=== PATIENT | female | born 1960 | race Caucasian/White ===

== ENCOUNTER 2017-11-23 05:51 | Observation (INO) | payer OTHER ==
[2017-11-23] MEDS ORDERED: POLYMYXIN/BACITRACIN 1L IRRIG ×3 (06:45→07:16)
[2017-11-23] MEDS ORDERED: ROPIVACAINE 0.5 % 30 ML VIAL (07:16)
[2017-11-23] MEDS ORDERED: ROPIVACAINE 0.2% 20 ML VIAL (07:28)
[2017-11-23] MEDS ORDERED: FENTAnyl 50 MCG/ML VIAL (07:28)
[2017-11-23] MEDS ORDERED: MIDAZOLAM 1 MG/ML 2 ML INJ (07:28)
[2017-11-23] MEDS ORDERED: METOCLOPRAMIDE 10 MG INJ (07:53)
[2017-11-23] MEDS ORDERED: ROCURONIUM 50 MG INJ (08:28)
[2017-11-23] MEDS ORDERED: ACETAMINOPHEN 1000MG/100ML IV 100 ML (08:28)
[2017-11-23] MEDS ORDERED: PROPOFOL 20 ML (08:28)
[2017-11-23] MEDS ORDERED: ONDANSETRON 4 MG INJ (08:28)
[2017-11-23] MEDS: NEOMYC/POLYMYX/BACIT 30 GM OINT ×2 (09:18)
[2017-11-23] MEDS: POLYMYXIN/BACITRACIN 1L IRRIG (09:18)
[2017-11-23] MEDS ORDERED: KETOROLAC 30 MG INJ (10:25)
[2017-11-23] MEDS ORDERED: PROPOFOL 100 ML (10:26)
[2017-11-23] MEDS: CA CHLORIDE 10% 10 ML SYRINGE (10:41)
[2017-11-23] MEDS: THROMBIN 5000 UNIT VIAL (10:42)
[2017-11-23] MEDS: THROMBIN(HUM PLAS)/FIBRINOG/CA 5 ML VIAL TOP (10:42)
[2017-11-23] MEDS ORDERED: HYDROmorphONE (0.2 MG/ML) 10ML SYG IV (12:00)
[2017-11-23] MEDS ORDERED: ONDANSETRON 4 MG INJ IV ×2 (12:00→12:30)
[2017-11-23] MEDS ORDERED: CEFAZOLIN 1 GM INJ IV (12:30)
[2017-11-23] MEDS ORDERED: DIPHENHYDRAMINE 25 MG CAP PO (12:30)
[2017-11-23] MEDS ORDERED: morphine 10 MG INJ IV (12:30)
[2017-11-23] MEDS ORDERED: HYDROmorphONE 2 MG/ML SYG IV (13:00)
[2017-11-23] MEDS: CEFAZOLIN 1 GM/50 ML (PMX) 50 ML IVPB ×2 (17:49→21:57)
[2017-11-23] MEDS: OXYCODONE/ACETAMINOPHEN (5/325) TAB PO (17:49)
[2017-11-24] MEDS: OXYCODONE/ACETAMINOPHEN (5/325) TAB PO ×3 (03:26→19:29)
[2017-11-24 05:14] LABS: ADD MAN DIFF? NO
[2017-11-24 05:21] LABS: BASOPHILS % 0.2 % (0.0-2.0); EOSINOPHILS # 0.1 10^3/ul (0.0-0.5); EOSINOPHILS % 2.3 % (0.0-7.0); HEMATOCRIT 31.8 % (37.0-47.0); HEMOGLOBIN 10.6 g/dl (12.0-16.0); LYMPHOCYTES # 1.7 10^3/ul (0.8-2.9); LYMPHOCYTES % 37.1 % (15.0-51.0); MEAN CORPUSCULAR HEMOGLOBIN 30.1 pg (29.0-33.0); MEAN CORPUSCULAR HGB CONC 33.3 g/dl (32.0-37.0); MEAN CORPUSCULAR VOLUME 90.3 fl (82.0-101.0); MEAN PLATELET VOLUME 11.5 fl (7.4-10.4); MONOCYTE # 0.5 10^3/ul (0.3-0.9); MONOCYTES % 10.9 % (0.0-11.0); NEUTROPHIL # 2.3 10^3/ul (1.6-7.5); NEUTROPHILS % 49.3 % (39.0-77.0); PLATELET COUNT 142 10^3/UL (140-415); RED BLOOD COUNT 3.52 10^6/ul (4.20-5.40); RED CELL DISTRIBUTION WIDTH 12.8 % (11.5-14.5)
[2017-11-24 05:21] LABS: WHITE BLOOD COUNT 4.7 10^3/ul (4.8-10.8)
[2017-11-24] MEDS: CEFAZOLIN 1 GM/50 ML (PMX) 50 ML IVPB ×3 (05:36→22:05)
[2017-11-24 05:43] LABS: POTASSIUM 4.5 mmol/L (3.5-5.1); SODIUM 144 mmol/L (135-144)
[2017-11-24 05:44] LABS: ALANINE AMINOTRANSFERASE 68 IU/L (13-69); ALBUMIN 3.6 g/dl (3.3-4.9); ALBUMIN/GLOBULIN RATIO 1.05; ALKALINE PHOSPHATASE 70 IU/L (42-121); ANION GAP 12 (8-16); ASPARTATE AMINO TRANSFERASE 56 IU/L (15-46); BILIRUBIN,INDIRECT 0.6 mg/dl (0-1.1); BILIRUBIN,TOTAL 0.6 mg/dl (0.2-1.3); BLOOD UREA NITROGEN 9 mg/dl (7-20); CALCIUM 9.1 mg/dl (8.4-10.2); CARBON DIOXIDE 32 mmol/L (21-31); CHLORIDE 105 mmol/L (97-110); CHOL/HDL RATIO 2.1 RATIO; CHOLESTEROL 107 mg/dl (100-200); CREATININE 0.56 mg/dl (0.44-1.00); GLUCOSE 123 mg/dl (70-220); HDL CHOLESTEROL 50 mg/dl (35-98); LDL CHOLESTEROL,CALCULATED 36 mg/dl; TRIGLYCERIDES 104 mg/dl (0-149)
[2017-11-24 06:12] LABS: THYROID STIMULATING HORMONE 0.386 MIU/L (0.465-4.680)
[2017-11-24 07:21] LABS: HEMOGLOBIN A1C 5.3 % (0-5.9)
[2017-11-24] MEDS: HYDROmorphONE 2 MG/ML SYG IV ×2 (08:14→15:54)
[2017-11-24] MEDS: ASPIRIN (EC) 81 MG TAB PO ×2 (13:40→21:06)
[2017-11-25] MEDS: OXYCODONE/ACETAMINOPHEN (5/325) TAB PO ×3 (04:52→16:58)
[2017-11-25] MEDS: CEFAZOLIN 1 GM/50 ML (PMX) 50 ML IVPB (05:55)
[2017-11-25] MEDS: ASPIRIN (EC) 81 MG TAB PO (09:16)
== END 2017-11-25 18:15 | disposition home or self-care (01) ==
LOC: SDS 05:51 → REC 12:13 → MS1 13:02
DX: S92.061A Displaced intraarticular fracture of right calcaneus, initial encounter for closed fracture (principal); E78.5 Hyperlipidemia, unspecified; G62.9 Polyneuropathy, unspecified; W19.XXXA Unspecified fall, initial encounter
CPT/HCPCS: 28415; 73610-RT; 80053; 80061; 82306; 83036; 83735; 84443; 85025; 97116; 97162; 97530